=== PATIENT | female | born 1980 | race Caucasian/White ===

== ENCOUNTER 2018-12-02 20:38 | Emergency (ER) | payer OTHER ==
[~2018-12-02] VITALS: Ht 165.1 cm; Wt 81.6 kg
[2018-12-02] MEDS ORDERED: DELTASONE20 M1 PO (21:09)
[2018-12-02] MEDS ORDERED: ZITHROMAX250 MG PO (21:09)
== END 2018-12-02 21:19 | disposition home or self-care (01) ==
LOC: ED 20:38
DX: J40 Bronchitis, not specified as acute or chronic (principal); M54.9 Dorsalgia, unspecified; F17.200 Nicotine dependence, unspecified, uncomplicated

== ENCOUNTER 2019-01-29 19:23 | Emergency (ER) | payer OTHER ==
[~2019-01-29] VITALS: Wt 72.6 kg
[~2019-01-29 19:23] MED LIST: DELTASONE20 M1 PO; ZITHROMAX250 MG PO
== END 2019-01-29 20:13 | disposition home or self-care (01) ==
LOC: ED 19:23
DX: Z00.8 Encounter for other general examination (principal); Z76.5 Malingerer [conscious simulation]; Z88.0 Allergy status to penicillin; Z88.8 Allergy status to other drugs, medicaments and biological substances; Z79.899 Other long term (current) drug therapy; Z79.2 Long term (current) use of antibiotics

== ENCOUNTER 2019-02-04 13:31 | Emergency (ER) | payer OTHER ==
[~2019-02-04] VITALS: Ht 165.1 cm; Wt 81.6 kg
[2019-02-04] MEDS ORDERED: PROVENTIL HFA6.7 GM INH (15:47)
[2019-02-04] MEDS ORDERED: PREDNISONE20 M1 PO (15:47)
[2019-02-04] MEDS ORDERED: TESSALON PERLE100 M1 PO (15:47)
== END 2019-02-04 15:48 | disposition home or self-care (01) ==
LOC: ED 13:31
DX: J40 Bronchitis, not specified as acute or chronic (principal); Z88.0 Allergy status to penicillin; Z88.6 Allergy status to analgesic agent; Z88.8 Allergy status to other drugs, medicaments and biological substances

== ENCOUNTER 2019-03-14 14:58 | Emergency (ER) | payer OTHER ==
[~2019-03-14] VITALS: Ht 165.1 cm; Wt 74.8 kg
[~2019-03-14 14:58] MED LIST changes: +PREDNISONE20 M1 PO; +PROVENTIL HFA6.7 GM INH; +TESSALON PERLE100 M1 PO
[2019-03-14 16:02] LABS: BASO % 0.6 % (0.0-1.0); EOS # 0.1 10*3/uL (0.0-0.4); EOS % 1.5 % (1.0-4.0); HEMATOCRIT 40.9 % (37.0-47.0); HEMOGLOBIN 13.5 g/dl (12.0-16.0); LYMPH # 1.5 10*3/uL (1.3-4.4); LYMPH % 27.4 % (27.0-41.0); MEAN CELL VOLUME 88.9 fl (81.0-99.0); MEAN CORPUSCULAR HGB 29.3 pg (27.0-31.0); MEAN PLATELET VOLUME 9.4 fl (9.6-12.3); MONO # 0.5 10*3/uL (0.1-1.0); MONO % 8.6 % (3.0-9.0); NEUT # 3.3 10*3/uL (2.3-7.9); NEUT % 61.5 % (47.0-73.0); PLATELET COUNT AUTOMATED 233 10*3/uL (130-400); RED CELL DISTRI WIDTH 13.9 % (0-14.5); WHITE BLOOD COUNT 5.3 10*3/uL (4.8-10.8)
[2019-03-14 16:34] LABS: ALBUMIN 3.7 gm/dl (3.1-4.5); ALKALINE PHOSPHATASE 70 U/L (45-117); BUN 13 mg/dl (7-24); CHLORIDE 107 mmol/L (98-107); CREATININE 0.85 mg/dL (0.55-1.02); POTASSIUM 3.8 mmol/L (3.5-5.1); SGOT/AST 23 IU/L (3-35); SGPT/ALT 33 U/L (12-78); SODIUM 139 mmol/L (136-145); TOTAL PROTEIN 7.8 gm/dL (6.4-8.2)
[2019-03-14] MEDS ORDERED: CEPHALEXIN500 M1 PO (17:01)
[2019-03-14] MEDS ORDERED: SEPTDS PO (17:01)
== END 2019-03-14 17:03 | disposition home or self-care (01) ==
LOC: ED 14:58
PROVIDERS: Nurse Practitioner Family
DX: L03.114 Cellulitis of left upper limb (principal); F17.200 Nicotine dependence, unspecified, uncomplicated; Z88.0 Allergy status to penicillin; Z88.6 Allergy status to analgesic agent; Z88.8 Allergy status to other drugs, medicaments and biological substances; Z79.899 Other long term (current) drug therapy

== ENCOUNTER 2019-08-03 14:30 | Emergency (ER) | payer SELFPAY ==
[~2019-08-03] VITALS: Ht 165.1 cm; Wt 72.6 kg
[~2019-08-03 14:30] MED LIST changes: +CEPHALEXIN500 M1 PO; +SEPTDS PO
== END 2019-08-03 14:43 | disposition home or self-care (01) ==
LOC: ED 14:30
DX: T16.1XXA Foreign body in right ear, initial encounter (principal); F17.200 Nicotine dependence, unspecified, uncomplicated; Z88.0 Allergy status to penicillin; Z88.6 Allergy status to analgesic agent; Z88.8 Allergy status to other drugs, medicaments and biological substances; Z79.2 Long term (current) use of antibiotics; Z79.899 Other long term (current) drug therapy; X58.XXXA Exposure to other specified factors, initial encounter; Y93.E8 Activity, other personal hygiene; Y92.89 Other specified places as the place of occurrence of the external cause; Y99.8 Other external cause status

== ENCOUNTER 2019-08-15 17:23 | Emergency (ER) | payer SELFPAY ==
[~2019-08-15] VITALS: Ht 165.1 cm; Wt 77.1 kg
[2019-08-15] MEDS ORDERED: Motrin,Rufen800 MG PO (19:18)
== END 2019-08-15 19:20 | disposition home or self-care (01) ==
LOC: ED 17:23
DX: S46.911A Strain of unspecified muscle, fascia and tendon at shoulder and upper arm level, right arm, initial encounter (principal); F17.200 Nicotine dependence, unspecified, uncomplicated; Z88.0 Allergy status to penicillin; Z88.6 Allergy status to analgesic agent; Z88.8 Allergy status to other drugs, medicaments and biological substances; X58.XXXA Exposure to other specified factors, initial encounter; Y93.89 Activity, other specified; Y92.89 Other specified places as the place of occurrence of the external cause; Y99.8 Other external cause status

== ENCOUNTER 2019-08-20 09:57 | Inpatient (IN) | payer SELFPAY ==
[~2019-08-20] VITALS: Ht 165.1 cm; Wt 80.3 kg
[~2019-08-20 09:57] MED LIST changes: +Motrin,Rufen800 MG PO
[2019-08-20 10:00] VITALS: BP 147/77
[2019-08-20 11:12] LABS: BASO % 0.3 % (0.0-1.0); EOS # 0.1 10*3/uL (0.0-0.4); EOS % 0.6 % (1.0-4.0); HEMATOCRIT 35.2 % (37.0-47.0); HEMOGLOBIN 11.8 g/dl (12.0-16.0); LYMPH # 2.5 10*3/uL (1.3-4.4); LYMPH % 19.4 % (27.0-41.0); MEAN CELL VOLUME 89.8 fl (81.0-99.0); MEAN CORPUSCULAR HGB 30.1 pg (27.0-31.0); MEAN CORPUSCULAR HGB CONC 33.5 g/dl (33.0-37.0); MEAN PLATELET VOLUME 9.3 fl (9.6-12.3); MONO # 1.2 10*3/uL (0.1-1.0); MONO % 9.8 % (3.0-9.0); NEUT # 8.8 10*3/uL (2.3-7.9); NEUT % 69.2 % (47.0-73.0); PLATELET COUNT AUTOMATED 266 10*3/uL (130-400); RED BLOOD COUNT 3.92 10*6/uL (4.10-5.10); RED CELL DISTRI WIDTH 12.7 % (0-14.5); WHITE BLOOD COUNT 12.7 10*3/uL (4.8-10.8)
[2019-08-20 11:18] LABS: ACT PARTIAL THROMBO TIME 27.8 SECONDS (20.0-32.1)
[2019-08-20 11:24] LABS: ALBUMIN 2.4 gm/dl (3.1-4.5); ALKALINE PHOSPHATASE 93 U/L (45-117); BUN 7 mg/dl (7-24); CHLORIDE 103 mmol/L (98-107); CREATININE 0.61 mg/dL (0.55-1.02); LIPASE 53 U/L (73-393); POTASSIUM 3.3 mmol/L (3.5-5.1); SGOT/AST 15 IU/L (3-35); SGPT/ALT 22 U/L (12-78); SODIUM 137 mmol/L (136-145); TOTAL PROTEIN 6.9 gm/dL (6.4-8.2)
[2019-08-20 11:26] LABS: BETA-HCG, QUANT < 1.0 mIU/mL (1-3); TROPONIN I < 0.015 ng/ml (<0.045)
--- NOTE | 2019-08-20 11:32 | NUR ---
PT POSITIONED FOR COMFORT AWAITING ALL RESULTS FOR ADDITIONAL PLAN OF CARE, FAMILY @ BEDSIDE AND CALL LIGHT WITHIN REACH.PT REQUESTING PAIN MEDICATION AND DR. GUERRIER AWARE.
[2019-08-20 11:47] VITALS: BP 156/82
--- NOTE | 2019-08-20 12:05 | NUR ---
PAIN RELIEF WITH MEDS AND PAIN DOWN FROM A 10 TO A 6-7 ON 1-10 PAIN SCALE @ THIS TIME.
[2019-08-20 13:00] VITALS: BP 148/84
--- NOTE | 2019-08-20 13:44 | NUR ---
cefepim to 5e
[2019-08-20 13:57] VITALS: BP 157/86
--- NOTE | 2019-08-20 13:57 | NUR ---
PATIENT ARRIVED TO FLOOR VIA CART FROM ER WITH IV ANTIBIOTIC INFUSING IN RIGHT ARM IV, ESCORTED BY [facility] CULTURIST. BEDSIDE REPORT RECEIVED FROM [facility] CULTURIST, ADMISSION ASSESSMENT COMPLETED WITHOUT INCIDENT. PATIENT PLACED ON CLINICAL NURSING COORDINATOR WHICH WAS SHOWING NORMAL SINUS RHYTHM AT THIS TIME. PATIENT ON ROOM AIR. REQUESTING PAIN MEDICATION FOR BUE PAIN, DR. FRENCH MADE AWARE, WAITING ON ORDERS. PATIENT ORIENTED TO ROOM, CALL LIGHT AND ADMISSION PROCEDURE. CALL LIGHT WITHIN REACH. WILL CONTINUE TO MONITOR.
[2019-08-20 16:00] VITALS: BP 138/82
--- NOTE | 2019-08-20 19:50 | NUR ---
SUBLIMAZE GIVEN FOR PT C/O SEVERE PAIN IN BOTH ARMS RATED A 9/10. PAIN IS DESCRIBED A BURNING, STABBING PAIN, WILL CONTINUE TO MONITOR AND REASSESS.
[2019-08-20 20:00] VITALS: BP 149/84
--- NOTE | 2019-08-20 20:50 | NUR ---
SUBLIMAZE EFFECTIVE. PATIENT REPORTS A PAIN LEVEL OF ONLY 2/10 AND TOLERABLE. CALL LIGHT WITHIN REACH.
--- NOTE | 2019-08-20 23:41 | NUR ---
DR. SALAZAR NOTIFIED THAT PATIENT IS LEAVING AMA. CONSEQUENCES OF LEAVING AMA WERE EXPLAIN TO THE PATIENT. AMA FORM SIGN BY PATIENT.
--- NOTE | 2019-08-20 23:42 | NUR ---
Patient signed out AMA. Patient encouraged to stay and advised of possible consequences of premature discharge. Physician and asbestos cement sheet supervisor IZZY notified. Patient instructed what to do regarding care post-departure from the hospital; emergency phone numbers provided. Patent was accompanied by HERSELF. ABILIO COON
== END 2019-08-20 23:42 | disposition left against medical advice (07) | DRG 871 ==
LOC: ED 09:57 → EDHOLD 13:08 → 5E 13:19
PROVIDERS: Emergency Medicine; ADMIT Internal Medicine
DX: A41.9 Sepsis, unspecified organism (principal); E43 Unspecified severe protein-calorie malnutrition; L03.114 Cellulitis of left upper limb; F17.210 Nicotine dependence, cigarettes, uncomplicated; E87.6 Hypokalemia; R73.9 Hyperglycemia, unspecified; D64.9 Anemia, unspecified; E83.51 Hypocalcemia; R03.0 Elevated blood-pressure reading, without diagnosis of hypertension; R70.0 Elevated erythrocyte sedimentation rate; R79.82 Elevated C-reactive protein (CRP); F11.10 Opioid abuse, uncomplicated; Z53.21 Procedure and treatment not carried out due to patient leaving prior to being seen by health care provider; Z82.49 Family history of ischemic heart disease and other diseases of the circulatory system; Z83.3 Family history of diabetes mellitus; Z80.8 Family history of malignant neoplasm of other organs or systems; Z71.6 Tobacco abuse counseling; Z88.0 Allergy status to penicillin; Z88.6 Allergy status to analgesic agent; S46.911D Strain of unspecified muscle, fascia and tendon at shoulder and upper arm level, right arm, subsequent encounter; Z90.49 Acquired absence of other specified parts of digestive tract; Z68.29 Body mass index [BMI] 29.0-29.9, adult

== ENCOUNTER 2019-11-05 13:44 | Emergency (ER) | payer SELFPAY ==
[~2019-11-05] VITALS: Ht 165.1 cm; Wt 77.1 kg
[2019-11-05] MEDS ORDERED: CLINDAMYCIN HC300 MG PO ×2 (14:08→14:32)
== END 2019-11-05 15:01 | disposition home or self-care (01) ==
LOC: ED 13:44
DX: L02.414 Cutaneous abscess of left upper limb (principal); Z88.8 Allergy status to other drugs, medicaments and biological substances; Z88.0 Allergy status to penicillin; Z90.49 Acquired absence of other specified parts of digestive tract

== ENCOUNTER 2019-11-07 00:42 | Emergency (ER) | payer SELFPAY ==
[~2019-11-07] VITALS: Ht 165.1 cm; Wt 77.1 kg
[~2019-11-07 00:42] MED LIST changes: +CLINDAMYCIN HC300 MG PO
== END 2019-11-07 01:38 | disposition home or self-care (01) ==
LOC: ED 00:42
DX: Z02.89 Encounter for other administrative examinations (principal); F11.10 Opioid abuse, uncomplicated; F17.200 Nicotine dependence, unspecified, uncomplicated; Z88.0 Allergy status to penicillin; Z88.6 Allergy status to analgesic agent; Z88.8 Allergy status to other drugs, medicaments and biological substances

== ENCOUNTER 2020-05-06 22:12 | Emergency (ER) | payer OTHER ==
[~2020-05-06] VITALS: Ht 165.1 cm; Wt 81.6 kg
== END 2020-05-06 23:32 | disposition home or self-care (01) ==
LOC: ED 22:12
DX: H61.21 Impacted cerumen, right ear (principal); F17.200 Nicotine dependence, unspecified, uncomplicated; F11.10 Opioid abuse, uncomplicated; Z90.49 Acquired absence of other specified parts of digestive tract; Z88.0 Allergy status to penicillin; Z88.6 Allergy status to analgesic agent; Z88.8 Allergy status to other drugs, medicaments and biological substances

== ENCOUNTER 2020-07-02 09:04 | Emergency (ER) | payer OTHER ==
[~2020-07-02] VITALS: Ht 165.1 cm; Wt 77.1 kg
[2020-07-02 09:48] LABS: BASO % 0.5 % (0.0-1.0); EOS % 0.7 % (1.0-4.0); HEMATOCRIT 47.1 % (37.0-47.0); LYMPH # 1.9 10*3/uL (1.3-4.4); LYMPH % 31.2 % (27.0-41.0); MEAN CELL VOLUME 85.5 fl (81.0-99.0); MEAN CORPUSCULAR HGB 27.8 pg (27.0-31.0); MEAN CORPUSCULAR HGB CONC 32.5 g/dl (33.0-37.0); MEAN PLATELET VOLUME 9.2 fl (9.6-12.3); MONO # 0.3 10*3/uL (0.1-1.0); MONO % 4.3 % (3.0-9.0); NEUT # 3.9 10*3/uL (2.3-7.9); NEUT % 63.1 % (47.0-73.0); PLATELET COUNT AUTOMATED 312 10*3/uL (130-400); RED BLOOD COUNT 5.51 10*6/uL (4.10-5.10); RED CELL DISTRI WIDTH 13.3 % (0-14.5); WHITE BLOOD COUNT 6.1 10*3/uL (4.8-10.8)
[2020-07-02 10:03] LABS: ALBUMIN 3.8 gm/dl (3.1-4.5); ALKALINE PHOSPHATASE 73 U/L (45-117); BUN 9 mg/dl (7-24); CHLORIDE 109 mmol/L (98-107); POTASSIUM 3.7 mmol/L (3.5-5.1); SGOT/AST 16 IU/L (3-35); SGPT/ALT 20 U/L (12-78); SODIUM 136 mmol/L (136-145); TOTAL PROTEIN 8.6 gm/dL (6.4-8.2)
[2020-07-02 10:04] LABS: ACETAMINOPHEN (TYLENOL) < 5.0 ug/ml (10-30); ETHYL ALCOHOL < 3.0 mg/dl (<3)
[2020-07-02 10:06] LABS: BETA-HCG, QUANT < 1.0 mIU/mL (1-3)
== END 2020-07-02 10:26 | disposition home or self-care (01) ==
LOC: ED 09:04
PROVIDERS: Nurse Practitioner Family
DX: F11.23 Opioid dependence with withdrawal (principal); F17.200 Nicotine dependence, unspecified, uncomplicated; Z88.0 Allergy status to penicillin; Z88.6 Allergy status to analgesic agent; Z88.8 Allergy status to other drugs, medicaments and biological substances

== ENCOUNTER 2020-07-09 11:58 | Emergency (ER) | payer OTHER ==
[~2020-07-09] VITALS: Ht 165.1 cm; Wt 77.1 kg
== END 2020-07-09 14:25 | disposition left against medical advice (07) ==
LOC: ED 11:58
DX: G43.909 Migraine, unspecified, not intractable, without status migrainosus (principal); Z88.0 Allergy status to penicillin; Z88.6 Allergy status to analgesic agent; Z88.8 Allergy status to other drugs, medicaments and biological substances